=== PATIENT | female | born 2000 | race Caucasian/White ===

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

== ENCOUNTER 2019-03-07 09:17 | Emergency (ER) | payer OTHER ==
[~2019-03-07] VITALS: Ht 160 cm; Wt 54.4 kg
[2019-03-07] MEDS ORDERED: Zovirax200 MG PO (10:50)
[2019-03-07] MEDS ORDERED: Amoxicillin500 MG PO (10:50)
[2019-03-07] MEDS ORDERED: Flonase 0.05% N16 GM (10:50)
[2019-03-07] MEDS ORDERED: Sudogest30 MG PO (10:50)
== END 2019-03-07 10:55 | disposition home or self-care (01) ==
LOC: ER 09:17
DX: H66.93 Otitis media, unspecified, bilateral (principal); A60.00 Herpesviral infection of urogenital system, unspecified; F17.210 Nicotine dependence, cigarettes, uncomplicated
CPT/HCPCS: 71046; 99283-25

== ENCOUNTER 2019-06-17 00:59 | Emergency (ER) | payer OTHER ==
[~2019-06-17] VITALS: Ht 160 cm; Wt 66.2 kg
== END 2019-06-17 02:50 | disposition home or self-care (01) ==
LOC: ER 00:59
DX: J02.9 Acute pharyngitis, unspecified (principal); F17.210 Nicotine dependence, cigarettes, uncomplicated; Z88.5 Allergy status to narcotic agent; Z91.040 Latex allergy status; Z91.018 Allergy to other foods
CPT/HCPCS: 87081; 87430; 99283; A9270-GY

== ENCOUNTER → 2019-06-17 | Outpatient (CLI) | payer OTHER ==
[~2019-06-17] MED LIST changes: +Amoxicillin500 MG PO; +Flonase 0.05% N16 GM; +Sudogest30 MG PO; +Zovirax200 MG PO
== END ==
LOC: LAB SHORT 17:31 → LAB 17:31
DX: N89.8 Other specified noninflammatory disorders of vagina (principal)
CPT/HCPCS: 87070; 87205

== ENCOUNTER 2019-11-01 05:41 | Emergency (ER) | payer OTHER ==
[~2019-11-01] VITALS: Ht 160 cm; Wt 65.3 kg
[2019-11-01] MEDS ORDERED: PRENATAL TABLE1 EAC2 PO (05:54)
[2019-11-01 06:03] LABS: Source, Urine Clean Catch
[2019-11-01 06:07] LABS: Bilirubin, Urine Neg (Neg); Blood, Urine Neg (Neg); Glucose Qualitative, Urine Neg (Neg); Ketones, Urine 2+ (Neg); Leukocyte Esterase, Urine 1+ (Neg); Nitrite, Urine Neg (Neg); Protein, Urine Neg (Neg); Specific Gravity, Urine 1.015 (1.003-1.022); Urobilinogen, Urine NORM (Normal)
[2019-11-01 06:13] LABS: Appearance, Urine Clear (Clear); Color, Urine Yellow (P-Yellow)
[2019-11-01 06:14] LABS: Red Blood Cells, Urine 0-2 /hpf (0-2)
[2019-11-01 06:15] LABS: Bacteria Many /hpf; Squamous Epithelial Cells Many /hpf (Few)
[2019-11-01 06:27] LABS: BASOPHILS ABSOLUTE AUTO 0.12 K/mm3 (0.00-0.23); BASOPHILS PERCENT AUTO 1 % (0-2); EOSINOPHILS ABSOLUTE AUTO 0.41 K/mm3 (0.00-0.68); EOSINOPHILS PERCENT AUTO 2 % (0-6); Hematocrit 41.4 % (33.0-51.0); Hemoglobin 14.1 g/dL (11.5-16.0); IMMATURE GRAN ABSOLUTE AUTO 0.12 K/mm3 (0.00-0.10); IMMATURE GRAN PERCENT AUTO 1 % (0-1); LYMPHOCYTES ABSOLUTE AUTO 2.44 K/mm3 (0.84-5.20); LYMPHOCYTES PERCENT AUTO 10 % (21-46); MONOCYTES ABSOLUTE AUTO 1.49 K/mm3 (0.16-1.47); MONOCYTES PERCENT AUTO 6 % (4-13); Mean Corpuscular HGB 30.6 pg (26.0-34.0); Mean Corpuscular HGB Conc 34.1 g/dL (31.5-36.5); Mean Corpuscular Volume 90 fL (80-100); Mean Platelet Volume 10.9 fL (9.1-12.4); NEUTROPHILS ABSOLUTE AUTO 20.17 K/mm3 (1.96-9.15); NEUTROPHILS PERCENT AUTO 81 % (41-73); Platelet Count 255 K/mm3 (150-400); RDW Coefficient Variation 12.1 % (11.7-14.2); RDW Standard Deviation 39.1 fL (35.1-46.3); Red Blood Cell Count 4.61 M/mm3 (3.80-5.20); White Blood Cell Count 24.75 K/mm3 (4.00-11.30)
[2019-11-01 06:46] LABS: Anion Gap 8 mmol/L (6-16); Blood Urea Nitrogen 12 mg/dL (8-24); Bun/Creatinine Ratio 17.9 (12.0-20.0); CO2, Blood 23 mmol/L (21-32); Calcium, Blood 9.1 mg/dL (8.5-10.1); Chloride, Blood 109 mmol/L (98-108); Creatinine, Blood 0.67 mg/dL (0.40-1.00); Glomerular Filtration Rate >60 (60-); Glucose, Blood 88 mg/dL (70-99); Potassium, Blood 3.7 mmol/L (3.5-5.5); Sodium, Blood 140 mmol/L (136-145)
[2019-11-03 09:08] LABS: CHLAMYDIA TRACHOMATIS, NAA Negative (Negative); NEISSERIA GONORRHOEAE, NAA Negative (Negative)
== END 2019-11-01 09:18 | disposition home or self-care (01) ==
LOC: ER 05:41
PROVIDERS: Emergency Medicine
DX: O99.89 Other specified diseases and conditions complicating pregnancy, childbirth and the puerperium (principal); R10.9 Unspecified abdominal pain; O99.331 Smoking (tobacco) complicating pregnancy, first trimester; F17.210 Nicotine dependence, cigarettes, uncomplicated; Z88.5 Allergy status to narcotic agent; Z91.040 Latex allergy status; Z91.018 Allergy to other foods; Z3A.01 Less than 8 weeks gestation of pregnancy
CPT/HCPCS: 36415; 76801; 76817; 80048; 81001; 81025; 84702; 85025; 87086; 87491; 87591; 99284-25